=== PATIENT | female | born 1995 | race Caucasian/White ===

== ENCOUNTER 2020-04-26 10:46 | Outpatient (CLI) | payer BC, OTHER | END 2020-04-26 10:47 | disposition home or self-care (01) | LOC: NS 10:46 | PROVIDERS: ATTEND Nurse Practitioner Family | DX: Z71.3 Dietary counseling and surveillance (principal); R63.5 Abnormal weight gain | CPT/HCPCS: 97802 ==

== ENCOUNTER 2020-05-17 10:58 | Outpatient (CLI) | payer BC, OTHER | END 2020-05-17 10:59 | disposition home or self-care (01) | LOC: NS 10:58 | PROVIDERS: ATTEND Nurse Practitioner Family | DX: Z71.3 Dietary counseling and surveillance (principal); R63.5 Abnormal weight gain | CPT/HCPCS: 97803 ==